=== PATIENT | female | born 1995 | race African-American/Black ===

== ENCOUNTER 2017-02-26 11:39 | Emergency (ER) | payer OTHER ==
[~2017-02-26] VITALS: Ht 165.1 cm; Wt 65.0 kg
[~2017-02-26 11:39] MED LIST: FERR SULFATE325 MG PO; PRE-NATAL PO
[2017-02-26 12:39] LABS: HEMATOCRIT 27.8 % (37.0-47.0); HEMOGLOBIN 9.4 g/dl (12.0-16.0); IMMATURE GRANULOCYTES 0.6 % (0.0-1.0); MEAN CELL VOLUME 91.4 fL CALC (80.0-100.0); MEAN CORPUSCULAR HGB 30.9 pG CALC (26.0-32.0); MEAN CORPUSCULAR HGB CONC 33.8 g/L CALC (32.0-36.0); NEUT# 3.87 thou/uL (2.00-7.15); RED BLOOD COUNT 3.04 mill/uL (4.20-5.60); RED CELL DISTRI WIDTH 14.1 % (11.5-15.5)
[2017-02-26 12:46] LABS: ALKALINE PHOSPHATASE 125 u/l (38-126); AMYLASE 90 u/l (30-110); ANION GAP 11 (6-22 (CALC)); BILIRUBIN, TOTAL 0.3 mg/dL (0.0-1.4); BUN 5 mg/dL (7-17); BUN/CREATININE RATIO 8 (12-20 (CALC)); CALCIUM 9.2 mg/dL (8.4-10.2); CARBON DIOXIDE 21 mmol/l (22-30); CHLORIDE 109 mmol/l (95-108); CREATININE 0.6 mg/dL (0.5-1.0); GFR > 60 ML/MIN (>=60 (CALC)); GFR FOR AFR.AMER. > 60 ML/MIN (>=60 (CALC)); GLUCOSE 73 mg/dL (65-105); LIPASE 63 u/l (23-300); POTASSIUM 4.1 mmol/l (3.5-5.1); SGOT/AST 19 u/l (14-36); SGPT/ALT 23 u/l (9-52); SODIUM 137 mmol/l (137-146); TOTAL PROTEIN 6.2 g/dL (6.3-8.2)
[2017-02-26 13:41] VITALS: BP 99/61
== END 2017-02-26 14:00 | disposition home or self-care (01) | DRG 781 ==
LOC: ED 11:39
PROVIDERS: Emergency Medicine
DX: O21.9 Vomiting of pregnancy, unspecified (principal); K92.0 Hematemesis; Z3A.34 34 weeks gestation of pregnancy; O26.893 Other specified pregnancy related conditions, third trimester

== ENCOUNTER 2017-04-07 02:18 | Inpatient (IN) | payer OTHER ==
[~2017-04-07] VITALS: Ht 167.6 cm; Wt 60.8 kg
[2017-04-07] VITALS (33 sets, daily range): BP systolic 97–146; BP diastolic 53–88
[2017-04-07 02:41] LABS: URINE BILIRUBIN - DIPSTICK NEGATIVE (NEGATIVE); URINE BLOOD DIPSTICK LARGE (NEGATIVE); URINE CLARITY CLEAR; URINE COLOR YELLOW; URINE GLUCOSE - DIPSTICK NEGATIVE (NEGATIVE); URINE KETONE NEGATIVE (NEGATIVE); URINE LEUK ESTERASE NEGATIVE (NEGATIVE); URINE NITRITE - DIPSTICK NEGATIVE (Negative); URINE PH 6.5 (4.5-8.0); URINE PROTEIN - DIPSTICK NEGATIVE (NEG-TRACE); URINE UROBILINOGEN - DIPSTICK 0.2 E.U./dL (0.2)
[2017-04-07 02:48] LABS: BARBITURATES NEGATIVE (NEGATIVE); COCAINE NEGATIVE (NEGATIVE); METHADONE NEGATIVE (NEGATIVE); OXCYCODONE NEGATIVE (NEGATIVE); TETRAHYDROCANNABIONOL NEGATIVE (NEGATIVE); TRICYLIC ANTIDEPRESSANTS NEGATIVE (NEGATIVE)
[2017-04-07 02:52] LABS: URINE BACTERIA RARE hpf; URINE WBC 0-2 WBC/hpf (0-5)
[2017-04-07 04:04] LABS: HEMATOCRIT 30.6 % (37.0-47.0); HEMOGLOBIN 10.4 g/dl (12.0-16.0); IMMATURE GRANULOCYTES 0.5 % (0.0-1.0); MEAN CELL VOLUME 94.2 fL CALC (80.0-100.0); NEUT# 4.96 thou/uL (2.00-7.15); RED BLOOD COUNT 3.25 mill/uL (4.20-5.60); RED CELL DISTRI WIDTH 14.4 % (11.5-15.5)
[2017-04-07 04:05] LABS: ALBUMIN 3.2 g/dL (3.2-5.0); ALKALINE PHOSPHATASE 229 u/l (38-126); ANION GAP 12 (6-22 (CALC)); BILIRUBIN, TOTAL 0.3 mg/dL (0.0-1.4); BUN 8 mg/dL (7-17); BUN/CREATININE RATIO 11 (12-20 (CALC)); CALCIUM 9.7 mg/dL (8.4-10.2); CARBON DIOXIDE 22 mmol/l (22-30); CHLORIDE 107 mmol/l (95-108); CREATININE 0.7 mg/dL (0.5-1.0); GFR > 60 ML/MIN (>=60 (CALC)); GFR FOR AFR.AMER. > 60 ML/MIN (>=60 (CALC)); GLUCOSE 72 mg/dL (65-105); POTASSIUM 4.4 mmol/l (3.5-5.1); SGOT/AST 16 u/l (14-36); SGPT/ALT 20 u/l (9-52); SODIUM 137 mmol/l (137-146); TOTAL PROTEIN 6.6 g/dL (6.3-8.2)
[2017-04-08] VITALS (18 sets, daily range): BP systolic 102–143; BP diastolic 62–87
[2017-04-09 04:05] VITALS: BP 116/72
[2017-04-09 05:32] LABS: HEMATOCRIT 25.8 % (37.0-47.0); HEMOGLOBIN 8.7 g/dl (12.0-16.0); IMMATURE GRANULOCYTES 0.4 % (0.0-1.0); MEAN CELL VOLUME 93.8 fL CALC (80.0-100.0); MEAN CORPUSCULAR HGB 31.6 pG CALC (26.0-32.0); MEAN CORPUSCULAR HGB CONC 33.7 g/L CALC (32.0-36.0); NEUT# 7.42 thou/uL (2.00-7.15); RED BLOOD COUNT 2.75 mill/uL (4.20-5.60)
[2017-04-09 08:15] VITALS: BP 118/72
[2017-04-09 17:35] VITALS: BP 121/78
[2017-04-09 19:45] VITALS: BP 120/66
[2017-04-10 06:05] VITALS: BP 123/59
[2017-04-10] MEDS ORDERED: LORTAB 7.57.5 MG PO (07:02)
[2017-04-10] MEDS ORDERED: IBUPROFEN600 MG PO (07:03)
== END 2017-04-10 17:10 | disposition home or self-care (01) | DRG 765 ==
LOC: OBOP 02:18 → EDSTATUS 02:20 → OB 02:35 → OBOP 02:35 → OB 02:35 → OBOP 03:19 → OB 03:20
PROVIDERS: ADMIT Obstetrics & Gynecology; ATTEND Obstetrics & Gynecology
PROC: 10D00Z1 Extraction of Products of Conception, Low, Open Approach (ICD-10-PCS; principal; 2017-04-08)
DX: O41.03X0 Oligohydramnios, third trimester, not applicable or unspecified (principal); O99.324 Drug use complicating childbirth; O62.1 Secondary uterine inertia; F12.90 Cannabis use, unspecified, uncomplicated; Z3A.40 40 weeks gestation of pregnancy; Z37.0 Single live birth
CPT/HCPCS: J2270

== ENCOUNTER 2017-07-21 21:33 | Emergency (ER) | payer OTHER ==
[~2017-07-21] VITALS: Ht 167.6 cm; Wt 51.0 kg
[~2017-07-21 21:33] MED LIST changes: +IBUPROFEN600 MG PO; +LORTAB 7.57.5 MG PO
[2017-07-21 22:30] LABS: HEMATOCRIT 36.1 % (37.0-47.0); IMMATURE GRANULOCYTES 0.3 % (0.0-1.0); MEAN CELL VOLUME 91.4 fL CALC (80.0-100.0); MEAN CORPUSCULAR HGB 30.4 pG CALC (26.0-32.0); MEAN CORPUSCULAR HGB CONC 33.2 g/L CALC (32.0-36.0); NEUT# 2.69 thou/uL (2.00-7.15); RED BLOOD COUNT 3.95 mill/uL (4.20-5.60); RED CELL DISTRI WIDTH 13.6 % (11.5-15.5)
[2017-07-21 22:42] LABS: ALBUMIN 4.2 g/dL (3.2-5.0); ALKALINE PHOSPHATASE 64 u/l (38-126); ANION GAP 14 (6-22 (CALC)); BILIRUBIN, TOTAL 0.3 mg/dL (0.0-1.4); BUN 11 mg/dL (7-17); BUN/CREATININE RATIO 13 (12-20 (CALC)); CARBON DIOXIDE 20 mmol/l (22-30); CHLORIDE 111 mmol/l (95-108); CREATININE 0.9 mg/dL (0.5-1.0); GFR > 60 ML/MIN (>=60 (CALC)); GFR FOR AFR.AMER. > 60 ML/MIN (>=60 (CALC)); GLUCOSE 97 mg/dL (65-105); POTASSIUM 4.3 mmol/l (3.5-5.1); SGOT/AST 14 u/l (14-36); SGPT/ALT 29 u/l (9-52); SODIUM 141 mmol/l (137-146); TOTAL PROTEIN 7.2 g/dL (6.3-8.2)
[2017-07-22 00:57] VITALS: BP 110/67
== END 2017-07-22 00:58 | disposition home or self-care (01) | DRG 607 ==
LOC: ED 21:33
PROVIDERS: Emergency Medicine
DX: R22.42 Localized swelling, mass and lump, left lower limb (principal)
CPT/HCPCS: Q9967

== ENCOUNTER 2017-08-08 00:08 | Emergency (ER) | payer OTHER ==
[~2017-08-08] VITALS: Ht 167.6 cm; Wt 53.6 kg
[2017-08-08 01:18] LABS: HEMATOCRIT 37.8 % (37.0-47.0); HEMOGLOBIN 12.6 g/dl (12.0-16.0); IMMATURE GRANULOCYTES 0.2 % (0.0-1.0); MEAN CELL VOLUME 90.6 fL CALC (80.0-100.0); MEAN CORPUSCULAR HGB 30.2 pG CALC (26.0-32.0); MEAN CORPUSCULAR HGB CONC 33.3 g/L CALC (32.0-36.0); NEUT# 2.24 thou/uL (2.00-7.15); RED BLOOD COUNT 4.17 mill/uL (4.20-5.60); RED CELL DISTRI WIDTH 13.5 % (11.5-15.5)
[2017-08-08 01:35] LABS: ALBUMIN 4.4 g/dL (3.2-5.0); ALKALINE PHOSPHATASE 63 u/l (38-126); AMYLASE 92 u/l (30-110); ANION GAP 15 (6-22 (CALC)); BILIRUBIN, TOTAL 0.5 mg/dL (0.0-1.4); BUN 10 mg/dL (7-17); BUN/CREATININE RATIO 14 (12-20 (CALC)); CALCIUM 9.8 mg/dL (8.4-10.2); CARBON DIOXIDE 23 mmol/l (22-30); CHLORIDE 108 mmol/l (95-108); CREATININE 0.7 mg/dL (0.5-1.0); GFR > 60 ML/MIN (>=60 (CALC)); GFR FOR AFR.AMER. > 60 ML/MIN (>=60 (CALC)); GLUCOSE 106 mg/dL (65-105); LIPASE 113 u/l (23-300); POTASSIUM 4.3 mmol/l (3.5-5.1); SGOT/AST 31 u/l (14-36); SGPT/ALT 27 u/l (9-52); SODIUM 141 mmol/l (137-146)
[2017-08-08 01:43] LABS: MYOGLOBIN 13 ng/mL (0 - 62)
[2017-08-08 04:24] LABS: URINE BILIRUBIN - DIPSTICK NEGATIVE (NEGATIVE); URINE BLOOD DIPSTICK NEGATIVE (NEGATIVE); URINE CLARITY SLIGHT CLOUDY; URINE COLOR YELLOW; URINE GLUCOSE - DIPSTICK NEGATIVE (NEGATIVE); URINE KETONE NEGATIVE (NEGATIVE); URINE LEUK ESTERASE NEGATIVE (NEGATIVE); URINE NITRITE - DIPSTICK NEGATIVE (Negative); URINE PH 5.5 (4.5-8.0); URINE PROTEIN - DIPSTICK NEGATIVE (NEG-TRACE); URINE UROBILINOGEN - DIPSTICK 0.2 E.U./dL (0.2)
[2017-08-08 04:29] LABS: BARBITURATES NEGATIVE (NEGATIVE); COCAINE NEGATIVE (NEGATIVE); METHADONE NEGATIVE (NEGATIVE); OXCYCODONE NEGATIVE (NEGATIVE); TETRAHYDROCANNABIONOL POSITIVE (NEGATIVE); TRICYLIC ANTIDEPRESSANTS NEGATIVE (NEGATIVE)
[2017-08-08] MEDS ORDERED: PREVPAC PO (04:46)
[2017-08-08 05:00] VITALS: BP 118/68
[2017-08-08] MEDS ORDERED: CLARITHROMYC500 M1 PO (14:35)
[2017-08-08] MEDS ORDERED: AMOXICILLIN500 MG PO (14:35)
[2017-08-08] MEDS ORDERED: PRILOSEC20 MG PO (14:35)
== END 2017-08-08 05:00 | disposition home or self-care (01) | DRG 392 ==
LOC: ED 00:08
PROVIDERS: Emergency Medicine
DX: K29.70 Gastritis, unspecified, without bleeding (principal); K27.9 Peptic ulcer, site unspecified, unspecified as acute or chronic, without hemorrhage or perforation; F17.210 Nicotine dependence, cigarettes, uncomplicated
CPT/HCPCS: S0164

== ENCOUNTER 2017-12-26 19:00 | Emergency (ER) | payer OTHER ==
[~2017-12-26] VITALS: Ht 167.6 cm; Wt 48.0 kg
[~2017-12-26 19:00] MED LIST changes: +AMOXICILLIN500 MG PO; +CLARITHROMYC500 M1 PO; +PREVPAC PO; +PRILOSEC20 MG PO
[2017-12-26 22:35] VITALS: BP 134/91
== END 2017-12-26 22:35 | disposition home or self-care (01) | DRG 103 ==
LOC: ED 19:00
DX: R51 Headache (principal)

== ENCOUNTER 2018-02-25 11:31 | Emergency (ER) | payer OTHER ==
[~2018-02-25] VITALS: Ht 167.6 cm; Wt 49.8 kg
[2018-02-25 12:24] LABS: URINE BILIRUBIN - DIPSTICK NEGATIVE (NEGATIVE); URINE BLOOD DIPSTICK MODERATE (NEGATIVE); URINE CLARITY CLEAR; URINE COLOR YELLOW; URINE GLUCOSE - DIPSTICK NEGATIVE (NEGATIVE); URINE KETONE NEGATIVE (NEGATIVE); URINE LEUK ESTERASE NEGATIVE (NEGATIVE); URINE NITRITE - DIPSTICK NEGATIVE (Negative); URINE PH 5.5 (4.5-8.0); URINE PROTEIN - DIPSTICK NEGATIVE (NEG-TRACE); URINE SPECIFIC GRAVITY >=1.030; URINE UROBILINOGEN - DIPSTICK 0.2 E.U./dL (0.2)
[2018-02-25 12:25] LABS: HEMATOCRIT 42.1 % (37.0-47.0); HEMOGLOBIN 14.1 g/dl (12.0-16.0); MEAN CELL VOLUME 91.1 fL CALC (80.0-100.0); MEAN CORPUSCULAR HGB 30.5 pG CALC (26.0-32.0); MEAN CORPUSCULAR HGB CONC 33.5 g/L CALC (32.0-36.0); NEUT# 2.19 thou/uL (2.00-7.15); RED BLOOD COUNT 4.62 mill/uL (4.20-5.60)
[2018-02-25 12:33] LABS: URINE CALCIUM OXALATE CRYSTALS FEW lpf; URINE SQUAMOUS EPITHELIAL CELL FEW EPI/hpf (0-FEW)
[2018-02-25 12:45] LABS: ALBUMIN 4.6 g/dL (3.2-5.0); ALKALINE PHOSPHATASE 66 u/l (38-126); ANION GAP 20 (6-22 (CALC)); BILIRUBIN, TOTAL 0.7 mg/dL (0.0-1.4); BUN 13 mg/dL (7-17); BUN/CREATININE RATIO 15 (12-20 (CALC)); CARBON DIOXIDE 17 mmol/l (22-30); CHLORIDE 109 mmol/l (95-108); CREATININE 0.9 mg/dL (0.5-1.0); GFR > 60 ML/MIN (>=60 (CALC)); GFR FOR AFR.AMER. > 60 ML/MIN (>=60 (CALC)); LIPASE 113 u/l (23-300); POTASSIUM 4.3 mmol/l (3.5-5.1); SGOT/AST 14 u/l (14-36); SGPT/ALT 25 u/l (9-52); SODIUM 142 mmol/l (137-146); TOTAL PROTEIN 8.3 g/dL (6.3-8.2)
[2018-02-25] MEDS ORDERED: ONDANSETRON4 MG PO (14:09)
[2018-02-25 14:36] VITALS: BP 106/65
== END 2018-02-25 14:36 | disposition home or self-care (01) | DRG 392 ==
LOC: ED 11:31
PROVIDERS: Family Medicine
DX: R10.31 Right lower quadrant pain (principal); R10.32 Left lower quadrant pain; R53.1 Weakness; R11.2 Nausea with vomiting, unspecified
CPT/HCPCS: Q9967

== ENCOUNTER 2018-03-07 16:30 | Emergency (ER) | payer OTHER ==
[~2018-03-07] VITALS: Ht 167.6 cm; Wt 50.0 kg
[~2018-03-07 16:30] MED LIST changes: +ONDANSETRON4 MG PO
[2018-03-07 17:30] LABS: INFLUENZA A NONE DETECTED (NONE DETECT); INFLUENZA B NONE DETECTED (NONE DETECT)
[2018-03-07] MEDS ORDERED: AMOXICILLIN500 M2 PO (17:32)
[2018-03-07 17:40] VITALS: BP 119/74
== END 2018-03-07 17:40 | disposition home or self-care (01) | DRG 153 ==
LOC: ED 16:30
PROVIDERS: Family Medicine
DX: J02.0 Streptococcal pharyngitis (principal); R01.1 Cardiac murmur, unspecified; Z86.718 Personal history of other venous thrombosis and embolism; R51 Headache; R50.9 Fever, unspecified; R52 Pain, unspecified

== ENCOUNTER 2018-04-19 17:10 | Emergency (ER) | payer OTHER ==
[~2018-04-19] VITALS: Ht 167.6 cm; Wt 53.0 kg
[~2018-04-19 17:10] MED LIST changes: +AMOXICILLIN500 M2 PO
[2018-04-19] MEDS ORDERED: ULTRAM50 M1 PO (18:34)
[2018-04-19 18:54] VITALS: BP 112/77
== END 2018-04-19 18:55 | disposition home or self-care (01) | DRG 563 ==
LOC: ED 17:10
DX: S92.511A Displaced fracture of proximal phalanx of right lesser toe(s), initial encounter for closed fracture (principal); W22.09XA Striking against other stationary object, initial encounter; Y92.009 Unspecified place in unspecified non-institutional (private) residence as the place of occurrence of the external cause

== ENCOUNTER 2018-12-12 15:03 | Emergency (ER) | payer OTHER ==
[~2018-12-12] VITALS: Ht 167.6 cm; Wt 50.4 kg
[~2018-12-12 15:03] MED LIST changes: +ULTRAM50 M1 PO
[2018-12-12] MEDS ORDERED: AMOXICILLIN875 MG PO (16:20)
[2018-12-12 16:30] VITALS: BP 101/63
== END 2018-12-12 16:30 | disposition home or self-care (01) ==
LOC: ED 15:03
DX: J02.9 Acute pharyngitis, unspecified (principal); R05 Cough; M79.10 Myalgia, unspecified site

== ENCOUNTER 2019-05-01 22:28 | Emergency (ER) | payer OTHER ==
[~2019-05-01] VITALS: Ht 167.6 cm; Wt 51.4 kg
[~2019-05-01 22:28] MED LIST changes: +AMOXICILLIN875 MG PO
[2019-05-02] MEDS ORDERED: CLARITIN10 M1 PO (00:10)
[2019-05-02] MEDS ORDERED: AMOXICILLIN500 MG PO (00:10)
[2019-05-02 00:26] VITALS: BP 104/61
== END 2019-05-02 00:29 | disposition home or self-care (01) ==
LOC: ED 22:28
DX: J02.0 Streptococcal pharyngitis (principal)

== ENCOUNTER 2020-02-05 | Emergency (ER) | payer MEDICAID ==
[~2020-02-05] MED LIST changes: +CLARITIN10 M1 PO
[2020-02-05] MEDS ORDERED: ALLEGRA-D 2424 HOUR PO ×2 (18:11)
== END 2020-02-05 18:20 | disposition home or self-care (01) | DRG 153 ==
DX: J30.2 Other seasonal allergic rhinitis (principal)

== ENCOUNTER 2020-07-09 10:58 | Emergency (ER) | payer SELFPAY ==
[~2020-07-09] VITALS: Ht 167.6 cm; Wt 56.0 kg
[~2020-07-09 10:58] MED LIST changes: +ALLEGRA-D 2424 HOUR PO
[2020-07-09] MEDS ORDERED: PERMETHRIN5 % EX (12:32)
[2020-07-09] MEDS ORDERED: ALLERGY RELF10 M3 PO (12:32)
[2020-07-09 12:38] VITALS: BP 120/68
== END 2020-07-09 12:48 | disposition home or self-care (01) ==
LOC: ED 10:58
DX: B86 Scabies (principal)

== ENCOUNTER 2025-02-04 05:43 | Emergency (ER) | payer MEDICAID ==
[~2025-02-04] VITALS: Ht 167.6 cm; Wt 52.6 kg
[~2025-02-04 05:43] MED LIST changes: +ALLERGY RELF10 M3 PO; +PERMETHRIN5 % EX
[2025-02-04 05:54] VITALS: BP 114/86
[2025-02-04] MEDS ORDERED: SODIUM CHLORIDE 0.9% 1,000 ML IV STA (05:59)
[2025-02-04] MEDS ORDERED: ONDANSETRON HCl 4 MG/2 ML SDV IV STA (05:59)
[2025-02-04 06:00] VITALS: BP 105/76
[2025-02-04] MEDS ORDERED: KETOROLAC TROMETHAMINE 30 MG/ML SDV IV ONE (06:00)
[2025-02-04 06:21] LABS: BASO% 0.6 % (0-3); EOS% 2.3 % (0-8); HEMATOCRIT 39.5 % (37.0-47.0); HEMOGLOBIN 13.5 g/dl (12.0-16.0); IMMATURE GRANULOCYTES 0.2 % (0.0-5.0); LYMPH% 48.4 % (15-41); MEAN CORPUSCULAR HGB 32.5 pG CALC (26.0-32.0); MEAN CORPUSCULAR HGB CONC 34.2 g/dL CAL (32.0-36.0); NEUT# 2.01 thou/uL (2.00-7.15); NEUT% 38.5 % (42-76); RED BLOOD COUNT 4.16 mill/uL (4.20-5.60)
[2025-02-04 06:24] LABS: URINE BLOOD DIPSTICK Negative (NEGATIVE); URINE GLUCOSE - DIPSTICK Negative (NEGATIVE); URINE KETONE Negative (NEGATIVE); URINE LEUK ESTERASE Negative (NEGATIVE); URINE NITRITE - DIPSTICK Negative (Negative); URINE PH 5.5 (4.5-8.0); URINE PROTEIN - DIPSTICK 30 mg/dL (NEG-TRACE); URINE SPECIFIC GRAVITY >=1.030
[2025-02-04 06:25] LABS: HCG SERUM/URINE (NEG/POS) NEGATIVE (NEGATIVE)
[2025-02-04 06:36] LABS: ALBUMIN 4.4 g/dL (3.2-5.0); CREATININE 0.7 mg/dL (0.5-1.0); POTASSIUM 5.1 mmol/l (3.5-5.1); TOTAL PROTEIN 7.9 g/dL (6.3-8.2)
[2025-02-04 06:38] LABS: BILIRUBIN, TOTAL 1.4 mg/dL (0.02-1.3)
[2025-02-04 06:42] LABS: URINE COLOR Yellow
[2025-02-04 06:43] LABS: URINE BACTERIA MODERATE hpf; URINE EPITHELIAL CELLS MODERATE EPI/hpf (0-FEW)
[2025-02-04] MEDS ORDERED: PROMETHAZINE HY25 M1 PO (06:54)
[2025-02-04 06:57] VITALS: BP 105/76
== END 2025-02-04 07:06 | disposition home or self-care (01) ==
LOC: ED 05:43
PROVIDERS: Family Medicine
DX: B34.9 Viral infection, unspecified (principal); Z86.718 Personal history of other venous thrombosis and embolism; Z72.0 Tobacco use; Z20.822 Contact with and (suspected) exposure to COVID-19
CPT/HCPCS: J2405